=== PATIENT | female | born 1950 | race African-American/Black ===

== ENCOUNTER → 2017-12-09 | Outpatient (CLI) | payer MEDICARE ==
--- NOTE | 2017-12-09 09:29 | RADIOLOGY REPORT (SQ) ---
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 TECHNIQUE: Dynamic and static gibson scale and color images acquired of both lower extremity venous sy stems. Selected spectral images acquired with additional compression and augmentation maneuvers. Imag es stored on PACS. LIMITATIONS: None. FINDINGS: RIGHT LEG COMMON FEMORAL AND FEMORAL: Normal phasicity, compression and augmentation. No visualized echogenic m aterial on gibson scale. No defects on color images. POPLITEAL: Normal compression and augmentation. No visualized echogenic material on gibson scale. No de fects on color images. CALF VESSELS: Normal compression and augmentation. No visualized echogenic material on gibson scale. No defects on color image. GSV AND SSV: Normal compression. No visualized echogenic material on gibson scale. No defects on color images. ANY DEEP VENOUS INSUFFICIENCY: No. ANY EVIDENCE OF POPLITEAL CYST: No. OTHER: No other significant finding. LEFT LEG COMMON FEMORAL AND FEMORAL: Normal phasicity, compression and augmentation. No visualized echogenic m aterial on gibson scale. No defects on color images. POPLITEAL: Normal compression and augmentation. No visualized echogenic material on gibson scale. No de fects on color images. CALF VESSELS: Normal compression and augmentation. No visualized echogenic material on gibson scale. No defects on color images. GSV AND SSV: Normal compression. No visualized echogenic material on gibson scale. No defects on color images. ANY DEEP VENOUS INSUFFICIENCY: No. ANY EVIDENCE POPLITEAL CYST: No. OTHER: No other significant finding. IMPRESSION: NO EVIDENCE DVT OR SVT IN EITHER LEG. TECHNICAL DOCUMENTATION: JOB ID: [id number]- All Rights Reserved Reading location - IP/workstation name: [email or web address]
== END ==
LOC: SP 07:37
PROVIDERS: ATTEND Family Medicine
DX: I83.893 Varicose veins of bilateral lower extremities with other complications (principal)
CPT/HCPCS: 93970

== ENCOUNTER → 2017-12-23 | Outpatient (CLI) | payer MEDICARE ==
--- NOTE | 2017-12-23 10:39 | RADIOLOGY REPORT (SQ) ---
EXAM DESCRIPTION: BARIUM SWALLOW ESOPHAGUS COMPLETED DATE/TIME: 12/23/2017 9:58 am REASON FOR STUDY: DYSPHAGIA R13.10 DYSPHAGIA, UNSPECIFIED COMPARISON: None. TECHNIQUE: Under fluoroscopic guidance, patient ingested effervescent granules followed by thick and thin barium. Fluoroscopic spot images and routine radiographic images acquired and stored on PACS. 12 MM BARIUM TABLET GIVEN: Yes. The 12 mm barium tablet paused in the cervical esophagus, just proximal to the proximal anastomosis o f interposed colon post esophagectomy. 12 mm barium tablet paused again, above the hemidiaphragms in the interposed colon before dropping through into the stomach. LIMITATIONS: None. FLUOROSCOPY TIME: FLUORO TIME: 2 minutes 38 seconds 32 series of digital images saved to PACS. FINDINGS: NEUROMUSCULAR COORDINATION OF SWALLOW: Normal. No aspiration. 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 No peristalsis of the colon/neoesophagus is seen ESOPHAGEAL MUCOSA: There is a proximal anastomosis between quinault esophagus and interposed colon at t he level of the left sternoclavicular joint. Moderate luminal narrowing is present just distal to th is anastomosis which temporarily impeded passage of the 12 mm barium tablet. This reproduced the pat ient's symptoms. Patient states that she has had this area dilated in the past. Midportion of the interposed colon in the anterior mediastinum is grossly unremarkable aside from sca ttered non inflamed diverticuli. The distal interposed colon at and just below the left hemidiaphragm exhibits mucosal irregularity wi th multiple tiny mucosal erosions. A small subcentimeter persistent ulcer is suspected about 7 to 10 cm proximal to the colon-stomach end to side anastomosis. GASTRO-ESOPHAGEAL JUNCTION: Unprovoked gastroesophageal reflux throughout the study NON-GI TRACT STRUCTURES: Implanted cardiac monitoring device over the anterior left chest wall soft t issues OTHER: No other significant finding. IMPRESSION: Post esophagectomy with colonic interposition. There is narrowing of the neoesophagus l umen just distal to the proximal anastomosis at the level of the left sternoclavicular joint. This t emporarily impeded passage of the 12 mm barium tablet which reproduced the patient's symptoms. Distal 7 to 10 cm of the neoesophagus exhibits diffuse mucosal irregularity with superficial small ul cerations. A subcentimeter persistent ulcer is suspected. Unprovoked gastric reflux into the mohan es ophagus. COMMENT: Quality ID 145: Final reports for procedures using fluoroscopy that document radiation exp osure indices, or exposure time and number of fluorographic images (if radiation exposure indices are not available) TECHNICAL DOCUMENTATION: JOB ID: [id number] [employer]- All Rights Reserved Reading location - IP/workstation name: [facility]
== END ==
LOC: RAD 09:08
PROVIDERS: ATTEND Internal Medicine Gastroenterology
DX: R13.10 Dysphagia, unspecified (principal); Z98.890 Other specified postprocedural states
CPT/HCPCS: 74220

== ENCOUNTER → 2017-12-29 | Outpatient (CLI) | payer MEDICARE ==
--- NOTE | 2017-12-29 14:07 | RADIOLOGY REPORT (SQ) ---
EXAM DESCRIPTION: MRI CERVICAL SPINE WITHOUT COMPLETED DATE/TIME: 12/29/2017 10:08 am REASON FOR STUDY: NECK PAIN M54.2 CERVICALGIA COMPARISON: None. TECHNIQUE: Sagittal and Axial imaging includes T1, T2, STIR and gradient echo sequences. LIMITATIONS: None. FINDINGS: ALIGNMENT: Normal. VERTEBRAE: Intact. BONE MARROW: Normal. No marrow replacement or reactive changes. DISCS: Normal. No significant abnormal signal or loss of height. Previous disc fusion at C6-C7. HARDWARE: None in the spine. CORD AND BASE OF BRAIN: Normal in size and signal intensity. SOFT TISSUES: No soft tissue masses. C1-C2: No significant spinal stenosis. C2-C3: No significant spinal stenosis or exit foraminal stenosis. C3-C4: No significant spinal stenosis or exit foraminal stenosis. C4-C5: Mild posterior disc and osteophyte. Uncovertebral spurring. Mild to moderate spinal stenosis and moderate right exit foraminal stenosis. C5-C6: Posterior disc and osteophyte. Uncovertebral spurring. Mild to moderate spinal stenosis and exit foraminal stenosis, worse on the right. C6-C7: No significant spinal stenosis or exit foraminal stenosis. C7-T1: Mild posterior disc and osteophyte. Uncovertebral spurring. Mild spinal stenosis and moderat e to severe right exit foraminal stenosis. UPPER THORACIC: Incompletely imaged. No significant spinal stenosis or exit foraminal stenosis. OTHER: No other significant finding. IMPRESSION: PREVIOUS FUSION AT C6-C 7. MULTILEVEL DEGENERATIVE CHANGES DESCRIBED. NO ACUTE FIND INGS. TECHNICAL DOCUMENTATION: JOB ID: [id number] [employer]- All Rights Reserved Reading location - IP/workstation name: [facility]
== END ==
LOC: RAD 09:25
PROVIDERS: ATTEND Orthopaedic Surgery
DX: M54.2 Cervicalgia (principal); Z98.1 Arthrodesis status
CPT/HCPCS: 72141

== ENCOUNTER → 2018-11-27 | Outpatient (CLI) | payer MEDICAID, MEDICARE ==
--- NOTE | 2018-11-30 14:58 | WOMENS IMAGING REPORT ---
EXAM DESCRIPTION: BILAT SCREENING MAMMO W/CAD COMPLETED DATE/TIME: 11/27/2018 1:20 pm REASON FOR STUDY: Z12.31 SCREENING [id number] ENCNTR SCREEN MAMMOGRAM FOR MALIGNANT NEOPLASM OF BR E COMPARISON: None. EXAM PARAMETERS: Standard craniocaudal and mediolateral oblique views of each breast recorded using digital acquisition. Read with the assistance of CAD. .[facility] - [employer]ant Version 9.2 LIMITATIONS: None. FINDINGS: RIGHT BREAST MASSES: No suspicious masses. CALCIFICATIONS: No new or suspicious calcifications. ARCHITECTURAL DISTORTION: None. DEVELOPING DENSITY: None. ASYMMETRY: None noted. OTHER: No other significant findings. LEFT BREAST MASSES: No suspicious masses. CALCIFICATIONS: No new or suspicious calcifications. ARCHITECTURAL DISTORTION: None. DEVELOPING DENSITY: None. ASYMMETRY: Vague nodular asymmetry in the medial breast, located just over 3 cm from the nipple. OTHER: No other significant findings. IMPRESSION: Vague nodular asymmetry in the left breast. No worrisome mammographic findings in the r ight breast. 0 Incomplete: Needs Additional Imaging Evaluation and/or prior Mammograms for Comparison. BREAST DENSITY: b. There are scattered areas of fibroglandular density. BIRAD: ASSESSMENT: 0 Incomplete: Needs Additional Imaging Evaluation and/or prior Mammograms for C omparison. RECOMMENDATION: RECOMMENDED FOLLOW-UP: Recommend additional evaluation with breast tomosynthesis (pr eferred) or compression views of the left breast and ultrasound of the left breast. Recommend routin e screening mammography of the right breast. The patient will be contacted for additional imaging. COMMENT: The patient has been notified of the results by letter per SA requirements. Additional no tification policies are in place for contacting patient with suspicious or incomplete findings. Quality ID #225: The [employer] recommends an annual screening mammogram for women aged 40 years or over. This facility utilizes a reminder system to ensure that all patients receive reminder letters, and/or direct phone calls for appointments. This includes reminders for routine scr eening mammograms, diagnostic mammograms, or other Breast Imaging Interventions when appropriate. Th is patient will be placed in the appropriate reminder system. TECHNICAL DOCUMENTATION: FINDING NUMBER: (1) ASSESSMENT: (1) JOB ID: [id number]- All Rights Reserved Reading location - IP/workstation name: [email or web address]
== END ==
LOC: WI 12:40
PROVIDERS: ATTEND Nurse Practitioner Family
DX: Z12.31 Encounter for screening mammogram for malignant neoplasm of breast (principal); N64.89 Other specified disorders of breast
CPT/HCPCS: 77067

== ENCOUNTER → 2018-12-04 | Outpatient (CLI) | payer MEDICAID, MEDICARE ==
--- NOTE | 2018-12-04 10:21 | WOMENS IMAGING REPORT ---
EXAM DESCRIPTION: LEFT DIAGNOSTIC MAMMO W/CAD COMPLETED DATE/TIME: 12/04/2018 9:46 am REASON FOR STUDY: N63.42 N63.42 UNSPECIFIED LUMP IN LEFT BREAST, SUBAREOLAR COMPARISON: Mammograms 11/27/2018 EXAM PARAMETERS: Cone compression craniocaudal and mediolateral oblique images of the left breast, l eft whole breast 90 mediolateral view recorded with digital acquisition. Read with the assistance of CAD. .[facility] - [employer] Manager Version 9.2 LIMITATIONS: None. FINDINGS: BREAST LATERALITY: Left MASSES: No suspicious masses. CALCIFICATIONS: No new or suspicious calcifications. ARCHITECTURAL DISTORTION: None. DEVELOPING DENSITY: None. ASYMMETRY: None noted. OTHER: Biopsy clip in the left deep central breast. Loop recorder over the medial left breast IMPRESSION: No mammographic evidence for malignancy left breast BREAST DENSITY: b. There are scattered areas of fibroglandular density. BIRAD: ASSESSMENT: 2 Benign findings. RECOMMENDATION: RECOMMENDED FOLLOW UP: Please continue yearly bilateral screening mammography/ tomos ynthesis in November 2019 SPECIFIC INTERVENTION/IMAGING/CONSULTATION RECOMMENDED:No additional intervention/ imaging/consultati on needed at this time. COMMUNICATION:The negative/benign results were communicated to the patient. COMMENT: The patient has been notified of the results by letter per SA requirements. Additional no tification policies are in place for contacting patient with suspicious or incomplete findings. Quality ID #225: The [employer] recommends an annual screening mammogram for women aged 40 years or over. This facility utilizes a reminder system to ensure that all patients receive reminder letters, and/or direct phone calls for appointments. This includes reminders for routine scr eening mammograms, diagnostic mammograms, or other Breast Imaging Interventions when appropriate. Th is patient will be placed in the appropriate reminder system. TECHNICAL DOCUMENTATION: FINDING NUMBER: (1) ASSESSMENT: (1) JOB ID: [id number] [employer]- All Rights Reserved Reading location - IP/workstation name: [email or web address]
== END ==
LOC: WI 07:53
PROVIDERS: ATTEND Nurse Practitioner Family
DX: N63.42 Unspecified lump in left breast, subareolar (principal)
CPT/HCPCS: 77065

== ENCOUNTER → 2020-01-17 | Outpatient (CLI) | payer MEDICARE ==
--- NOTE | 2020-01-17 10:11 | RADIOLOGY REPORT (SQ) ---
EXAM DESCRIPTION: BARIUM SWALLOW ESOPHAGUS IMAGES COMPLETED DATE/TIME: 01/17/2020 9:07 am REASON FOR STUDY: R13.14 DYSPHAGIA, PHARYNGOESOPHAGEAL PHASE R13.14 DYSPHAGIA, PHARYNGOESOPHAGEAL P HASE COMPARISON: 12/23/2017 BARIUM SWALLOW TECHNIQUE: Under fluoroscopic guidance, patient ingested effervescent granules followed by thick and thin barium. Fluoroscopic spot images and routine radiographic images acquired and stored on PACS. 12 MM BARIUM TABLET GIVEN: Yes. Slight delay at the level of the left clavicle due to persistent narrowing. LIMITATIONS: Status post esophagectomy with colonic interposition FLUOROSCOPY TIME: FLUORO TIME: 2.8 minutes. 10 images saved to PACS. FINDINGS: NEUROMUSCULAR COORDINATION OF SWALLOW: Normal. No aspiration. ESOPHAGEAL MOTILITY: Patient is status post colonic interposition for esophageal bypass. No peristal sis in the mohan esophagus. ESOPHAGEAL MUCOSA: Narrowing of the lumen of the bypass just distal to the proximal anastomosis at th e level of the clavicles, unchanged. Narrowing did slightly delay passage of the tablet. The bypass ed consists of section of colon which does have a few scattered diverticulum. GASTRO-ESOPHAGEAL JUNCTION: The anastomosis between the mohan all esophagus and stomach appears patent without evidence of stricture. Reflux was seen. NON-GI TRACT STRUCTURES: No significant finding. OTHER: No other significant finding. IMPRESSION: STATUS POST ESOPHAGECTOMY WITH COLONIC INTERPOSITION. AGAIN SEEN NARROWING OF THE PROXI MAL NEOESOPHAGUS WHERE IT PASSES BY THE CLAVICLES. THIS AREA OF NARROWING DID DELAY PASSAGE OF A 12 MM BARIUM TABLET MOMENTARILY. NO OTHER AREAS OF NARROWING OR ULCERATIONS SEEN. REFLUX WAS IDENTIFIE D. COMMENT: Quality ID 145: Final reports for procedures using fluoroscopy that document radiation exp osure indices, or exposure time and number of fluorographic images (if radiation exposure indices are not available) TECHNICAL DOCUMENTATION: JOB ID: [id number] [employer]- All Rights Reserved Reading location - IP/workstation name: [email or web address]
== END ==
LOC: RAD 08:31
PROVIDERS: ATTEND Nurse Practitioner Family
DX: R13.14 Dysphagia, pharyngoesophageal phase (principal)
CPT/HCPCS: 74220